=== PATIENT | male | born 1975 ===

== ENCOUNTER → 2020-06-05 | Outpatient (CLI) | payer SELFPAY ==
[2020-06-05 09:17] LABS: HEMOGLOBIN 16.6 g/dL (13.5-18.0); MEAN CELL VOLUME 92 fl (78-100); MEAN CORPUSCULAR HEMOGLOBIN 31 pg (27-31); MEAN CORPUSCULAR HGB CONC 33 g/dL (33-37); MEAN PLATELET VOLUME 10.1 fl (7.4-10.4); PLATELET COUNT 234 K/mm3 (130-400); RED BLOOD COUNT 5.43 M/mm3 (4.20-5.60); RED CELL DISTRIBUTION WIDTH 12.7 % (11.5-14.5); WHITE BLOOD COUNT 4.2 K/mm3 (4.8-10.8)
[2020-06-05 09:21] LABS: LYMPHOCYTE 33 % (20-51); MONOCYTE 9 % (3-10); NEUTROPHILS 58 % (42-75)
[2020-06-05 09:23] LABS: ALBUMIN 3.8 g/dL (3.5-5.0); POTASSIUM 4.3 mmol/L (3.5-5.1)
[2020-06-05 09:24] LABS: CALCIUM 9.1 mg/dL (8.3-10.5)
[2020-06-05 09:25] LABS: TOTAL PROTEIN 6.7 g/dL (6.4-8.3)
[2020-06-05 09:27] LABS: TOTAL BILIRUBIN 0.7 mg/dL (0.2-1.2)
[2020-06-05 09:32] LABS: MAGNESIUM 1.98 mg/dL (1.60-2.60)
[2020-06-07 12:01] LABS: CORTISOL, AM (0800) 6 ug/dL (3-20); T3 FREE 3.2 pg/mL (1.7-3.7)
[2020-06-07 12:03] LABS: FOLATE (FOLIC ACID) 14.3 ng/mL (7.0-31.4)
[2020-06-07 12:31] LABS: HOMOCYSTEINE SERUM OR PLASMA 6.2 umol/L (5.5-16.2)
[2020-06-10 03:11] LABS: .COPPER,S 1.02 mcg/mL (())
== END ==
LOC: LAB 08:42
DX: S06.0X1S Concussion with loss of consciousness of 30 minutes or less, sequela (principal); F43.23 Adjustment disorder with mixed anxiety and depressed mood; Z77.120 Contact with and (suspected) exposure to mold (toxic)